=== PATIENT | female | born 1970 | race Caucasian/White ===

== ENCOUNTER 2016-04-14 06:00 | Inpatient (IN) | payer BC ==
[~2016-04-14] VITALS: Ht 167.6 cm; Wt 86.2 kg
--- NOTE | ~2016-04-14 | HP ---
PATIENT'S NAME: SALOME SHORT [facility] AGE: 45 Y [address] ROOM: [place] [address] LOCATION: ADMIT DATE: 04/14/2016 History & Physical DISCHARGE DATE: FAMILY PHYSICIAN: Zackery Damon MD ATTENDING PHYSICIAN: Thi Salazar DATE OF SERVICE: HISTORY OF PRESENT ILLNESS: This is a 45-year-old, 6, para 0-1-4-2. She has a due date of 04/19/2016, set by last menstrual period and early ultrasound. She has had a history of a myomectomy with no major myometrial invasion. This was a spontaneous . She has a history of hypothyroidism. Her last free T4 and TSH were normal on 03/16/2016. CURRENT MEDICATIONS: Synthroid 25 mcg daily. She is on vitamins. ALLERGIES: CIPRO, KEFLEX, LEVAQUIN, PENICILLIN, AND SULFA. LABORATORY WORK: She is O positive, antibody screen negative, rubella immune, RPR nonreactive, hepatitis B nonreactive. Group B strep testing is negative. PHYSICAL EXAMINATION: LUNGS: Clear. HEART: Regular rate and rhythm. ABDOMEN: Gravid. IMPRESSION: 1. Intrauterine at 39 weeks. 2. Prior section for twins. PLAN: We will proceed with a repeat section. She understands surgical risks to include, not limited to, bleeding, transfusion, infection, injury to other organs, and need for additional surgery. Appropriate consents are signed and witnessed. THI SALAZAR MD KHP/modl PATIENT'S NAME: SALOME SHORT [facility] AGE: 45 Y [address] ROOM: [place] [address] LOCATION: ADMIT DATE: 04/14/2016 History & Physical DISCHARGE DATE: FAMILY PHYSICIAN: Zackery Damon MD ATTENDING PHYSICIAN: Thi Salazar /[id number] D: T: 1 HISTORY & PHYSICAL
--- NOTE | ~2016-04-14 | DS ---
PATIENT'S NAME: SALOME SHORT [facility] AGE: 45 Y [address] ROOM: [address] [address] LOCATION: GOBS ADMIT DATE: 04/14/2016 Discharge Summary DISCHARGE DATE: 04/17/2016 FAMILY PHYSICIAN: Zackery Damon MD ATTENDING PHYSICIAN: Thi Salazar DISCHARGE DIAGNOSES: 1. Term intrauterine at 39 weeks. 2. Prior section. 3. Large uterine fibroids. 4. Skin tags. PROCEDURES: Repeat low transverse section and skin tag removal. REASON FOR ADMISSION: This is a 45-year-old, 6, para 0-1-4-2 who presents with spontaneous with a due date of 04/19/2016. Though this is an advanced maternal age, her care has been uncomplicated. She has a known uterine fibroids and she had a section. HOSPITAL COURSE: The patient was taken to the operating room, and a repeat low transverse section was performed with adhesiolysis and removal of a skin tag. She did have large uterine fibroids that are noted. The surgery went well. 500 mL of blood loss. Following surgery, the patient had a normal postoperative course. On postop day #1, her hemoglobin was stable at 9.7. On postoperative day #2, she is ambulating well. The patient is discharged on postop day #3. DISCHARGE MEDICATIONS She is sent home with iron, Percocet, and Motrin. DISCHARGE INSTRUCTIONS She will follow up with Dr. Salazar in 2 and 6 weeks' time. MD ERICA TRUJILLO/modl /[id number] d: 05/01/16 0330 t: 05/05/16 1011, DISCHARGE SUMMARY
--- NOTE | ~2016-04-14 | OR ---
PATIENT'S NAME: SALOME SHORT [facility] AGE: 45 Y [address] ROOM: [place] [address] LOCATION: GOBS ADMIT DATE: 04/14/2016 OR/Procedure Report DISCHARGE DATE: FAMILY PHYSICIAN: Zackery Damon MD ATTENDING PHYSICIAN: Thi Salazar SURGEON: Thi Salazar MD INSPECTOR AUTOMATIC TYPEWRITER: Morris Marie MD DATE OF PROCEDURE: 04/14/2016 PREOPERATIVE DIAGNOSES: 1. Intrauterine at 39 weeks. 2. Prior section. 3. Large uterine fibroids. 4. Skin tag. POSTOPERATIVE DIAGNOSES: 1. Intrauterine at 39 weeks. 2. Prior section. 3. Large uterine fibroids. 4. Skin tag. PROCEDURES: 1. Repeat low transverse section. 2. Skin tag removal. 3. Adhesiolysis. ANESTHESIA: Spinal and tap block. BLOOD LOSS: 500 mL. COMPLICATIONS: None. PROCEDURE IN DETAILS: The patient was taken to the operating room and placed under spinal anesthetic. She was prepped and draped and a Mahmood catheter was placed. A verbal time-out was undertaken. A Pfannenstiel skin incision was made with a knife and carried down to the level of the fascia. The fascia was nicked in the midline. The incision was carried out laterally. The fascia was sharply and bluntly dissected from the underlying rectus muscles. Peritoneum was opened sharply and incised and stretched. A bladder blade was placed. The bladder reflection is taken down sharply and placed behind the bladder blade. A low transverse uterine incision was made with a knife and carried out laterally with the work over rig operator's fingers. The vertex was grasped after the bag of water was ruptured, found to be clear. The baby boy's vertex was delivered. His shoulders and body are easily delivered. The baby boy lets out a spontaneous cry and his cord was doubly clamped and cut. He was PATIENT'S NAME: SALOME SHORT [facility] AGE: 45 Y [address] ROOM: [place] [address] LOCATION: [facility] ADMIT DATE: 04/14/2016 OR/Procedure Report DISCHARGE DATE: FAMILY PHYSICIAN: Zackery Damon MD ATTENDING PHYSICIAN: Thi Salazar handed off to the warmer and weighs 8 pounds and 8 ounces. A three-vessel cord was noted. Placenta was delivered manually and intact. The uterus was exteriorized. There was a large degenerated fibroid at the left fundus measuring 7 cm. A 5 cm fibroid in the back that was calcified and two other smaller fibroids that I see there are 4 cm. Tubes and ovaries looked normal. The uterine incision was closed in a running locking stitch of 2-0 chromic. A second imbricating stitch was performed. Attention was turned to the 5 cm fibroid on the back. It was adhesed to the peritoneal surfaces and looks like it is swelling. So I went ahead and dissected this with sharp dissection with the Metzenbaum scissors. There was no bowel seen in the tissue. It is inspected after to make sure that it is dry and make sure there are no bowel involved, and it looked fine. The uterus was replaced within the peritoneal cavity. Colic gutters were inspected and found to be dry. Peritoneum was closed with 2-0 Vicryl. Vicryl 0 was used to close the fascia and tied separately in the midline., 4-0 Dexon to close the skin. Then the skin tag was taken off the left lateral abdomen and it was cauterized. The patient tolerated the procedure well. She will go to recovery in a stable condition. THI SALAZAR MD KHP/modl /[id number] CC: Jenifer Baldwin MD d: 04/14/16 1548 t: 04/18/16 0952, OPERATIVE SUMMARY
[2016-04-14] MEDS ORDERED: LEVOTHROID (SY25 MCG PO (06:37)
[2016-04-14] MEDS ORDERED: PRENATAL 1+1)(P1 TAB PO (06:37)
[2016-04-14] MEDS ORDERED: TUMS200 MG PO (06:37)
[2016-04-14 06:58] LABS: BASOPHIL # 0.1 K/uL (0.0-0.2); BASOPHIL % 0.5 %; EOSINOPHIL % 0.2 %; HEMATOCRIT 37.8 % (33.0-46.0); HEMOGLOBIN 12.7 g/dL (10.0-15.0); IMMATURE GRANULOCYTE # 0.1 K/uL (0.0-0.3); IMMATURE GRANULOCYTE % 0.5 %; LYMPHOCYTE # 2.8 K/uL (0.8-4.0); LYMPHOCYTE % 27.9 %; MCH 29.3 pg (27.0-34.0); MCHC 33.6 gm/dL (32.0-36.5); MCV 87.3 fl (83.0-98.0); MONOCYTE # 0.5 K/uL (0.0-1.0); MONOCYTE % 5.4 %; MPV 10.9 fl (9.4-12.4); NEUTROPHIL # (ANC) 6.6 K/uL (1.8-7.8); NEUTROPHIL % 65.5 %; NRBC % 0 /100WBC (0-0.00); PLATELET COUNT 199 K/uL (150-450); RDW-CV 13.4 % (11.9-14.6)
[2016-04-14 07:00] LABS: RBC 4.33 M/uL (3.50-5.50)
--- NOTE | 2016-04-14 17:55 | NUR ---
Last VS: T:98.4 P:72 R: 16 BP: 115/65 Pain ratin Last pain med: Percocet Medicated at: 1728 Effective: Yes R Lung sounds: , L Lung sounds: Fundus: FIRM Lochia: SM-MOD Breasts: OK Nipples: INTACT Incision: , Incision appearance: DRSG INTACT/DRY Incision closure: DRSG ON Bowel sounds: Y Passing flatus: N Voiding well: Y Significant event: *.UP AD LIZZETH, ALMONTE DC'D & PT GOT UP, NO VOID.
[2016-04-15 05:09] LABS: BASOPHIL % 0.3 %; EOSINOPHIL % 0.2 %; HEMOGLOBIN 9.4 g/dL (10.0-15.0); IMMATURE GRANULOCYTE # 0.1 K/uL (0.0-0.3); IMMATURE GRANULOCYTE % 0.6 %; LYMPHOCYTE # 2.3 K/uL (0.8-4.0); LYMPHOCYTE % 19.1 %; MCV 91.3 fl (83.0-98.0); MONOCYTE # 0.7 K/uL (0.0-1.0); MPV 10.9 fl (9.4-12.4); NEUTROPHIL # (ANC) 8.9 K/uL (1.8-7.8); NEUTROPHIL % 73.8 %; NRBC % 0 /100WBC (0-0.00); RDW-CV 13.9 % (11.9-14.6); WBC 12.1 K/uL (4.0-11.0)
[2016-04-15 05:14] LABS: MCH 29.3 pg (27.0-34.0); RBC 3.21 M/uL (3.50-5.50)
[2016-04-15 05:15] LABS: HEMATOCRIT 29.3 % (33.0-46.0); MCHC 32.1 gm/dL (32.0-36.5); PLATELET COUNT 137 K/uL (150-450)
--- NOTE | 2016-04-15 05:29 | NUR ---
Last VS: T:97.8 P:73 R: 14 BP: 127/65 Pain ratin . Last pain med: Percocet Medicated at: 0530 Effective: Yes R Lung sounds: clear L Lung sounds: clear Fundus: firm, midline Lochia: scant, rubra Breasts: soft, filling Nipples: intact, inverted Incision: low, transverse Incision appearance: MIcrofoam dressing CDI Bowel sounds: hypoactive Passing flatus: no Voiding well: voids well on own Significant event: VSS, ambulated in [place], takes Synthroid in p.m. not a.m. uses nipple shield, needs BF reinforcement.
--- NOTE | 2016-04-15 17:14 | NUR ---
Significant Event: VSS, up in room, showered, tolerated well, last had motrin and 1 percocet at 1730. Fundus firm, +1, midline, scant flow. SL removed.
--- NOTE | 2016-04-16 05:47 | NUR ---
VSS. FUNDUS FIRM, EVEN 1 DOWN. SMALL FLOW. PASSING FLATUS. PERCOECET AND MOTRIN LAST AT 0237.
--- NOTE | 2016-04-16 17:03 | NUR ---
Last VS: T:99.7 P:79 R: 16 BP: 131/80 Pain ratin-5 Last pain med: Percocet/MOTRIN Medicated at: 1430 Effective: Yes R Lung sounds: , L Lung sounds: Fundus: FIRM Lochia: SM Breasts: FILLING Nipples: TENDER/SLIGHTLY REDDENED (johanna around shield when used) Incision: , Incision appearance: C/D/I Incision closure: SUTURE/STERISTRIPS C/D/I Bowel sounds: Passing flatus: Y Voiding well: Y Significant event: *.UP AD LIZZEHT, MAY WANT TO SHOWER @ HS. IS ON FESO4 X1 DAY (HG 9.4) ~TAKES SYNTHROID AT HS
--- NOTE | 2016-04-17 04:35 | NUR ---
VSS, fundus firm, midline, scant flow, Incision dry with ster strips, Perc last at 0325, Motrin last at 2210, Levothyroxine at 0115
[2016-04-17] MEDS ORDERED: MOTRIN800 MG PO (08:23)
[2016-04-17] MEDS ORDERED: PERCOCET 5-3251 EACH PO (08:24)
== END 2016-04-17 12:00 | disposition disaster alternative care site (69) | DRG 765 ==
LOC: GOBS 06:00
PROVIDERS: ADMIT Obstetrics & Gynecology
PROC: 0UN40ZZ Release Uterine Supporting Structure, Open Approach (ICD-10-PCS; principal; 2016-04-14)
PROC: 0H57XZZ Destruction of Abdomen Skin, External Approach (ICD-10-PCS; principal; 2016-04-14)
PROC: 10D00Z1 Extraction of Products of Conception, Low, Open Approach (ICD-10-PCS; principal; 2016-04-14)
DX: O34.211 Maternal care for low transverse scar from previous cesarean delivery (principal); D62 Acute posthemorrhagic anemia; E03.9 Hypothyroidism, unspecified; Z3A.39 39 weeks gestation of pregnancy; Z37.0 Single live birth; O99.284 Endocrine, nutritional and metabolic diseases complicating childbirth; O34.13 Maternal care for benign tumor of corpus uteri, third trimester; L91.8 Other hypertrophic disorders of the skin
CPT/HCPCS: J1885; J7120